=== PATIENT | female | born 2000 | race Caucasian/White ===

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

== ENCOUNTER 2019-04-05 17:05 | Emergency (ER) | payer MEDICAID ==
[~2019-04-05] VITALS: Ht 160 cm; Wt 59.1 kg
[2019-04-05 17:22] VITALS: BP 134/80; TEMP 99
[2019-04-05] MEDS ORDERED: PRENATAL TABLET PO (18:42)
[2019-04-05 19:12] LABS: ALBUMIN 4.6 gm/dL (3.5-5.0); BILIRUBIN,TOTAL 0.2 mg/dL (0.0-1.0); CREATININE, serum 0.5 (0.52-1.25); POTASSIUM 4.2 mmol/L (3.4-5.0); TOTAL PROTEIN 7.7 gm/dL (6.4-8.2)
[2019-04-05 19:29] LABS: COLLECTION METHOD CLEAN CATCH
[2019-04-05 19:53] LABS: BASO # 0.1 (0.0-0.2); BASO % 0.6 % (0.0-2.0); EOS # 0.1 (0.0-0.7); EOS % 0.9 % (0-4.0); GRAN # 5.5 (1.4-6.5); GRAN % 67.4 % (42.2-75.2); HEMOGLOBIN 12.1 g/dl (12.0-15.0); LYMPH % 24.6 % (20.0-51.0); MEAN CELL VOLUME 87 fl (80.0-95.0); MEAN CORPUSCULAR HEMOGLOBIN 30 pg (26.0-32.0); MEAN CORPUSCULAR HGB CONC 35 g/dl (33.0-37.0); MEAN PLATELET VOLUME 10.5 fl (7.4-10.4); MONO # 0.5 (0.1-0.6); MONO % 6.4 % (1.7-9.3); PLATELET COUNT 225 K/mm3 (130-400); RED BLOOD COUNT 4.02 M/mm3 (4.10-5.30); REDCELL DISTRIBUTION WIDTH-CV 11.8 % (11.5-14.5)
[2019-04-05 20:02] LABS: HEMATOCRIT 34.8 % (35.0-45.0)
[2019-04-05 20:04] LABS: MUCOUS Present /lpf; PH 5 (5-8); URINE APPEARANCE Clear; URINE BACTERIA Rare /hpf; URINE BILIRUBIN Negative (NEGATIVE); URINE BLOOD Negative (NEGATIVE); URINE COLOR Straw; URINE GLUCOSE Negative (NEGATIVE); URINE KETONE Negative (NEGATIVE); URINE LEUKOCYTE ESTERASE Negative (NEGATIVE); URINE NITRATE Negative (NEGATIVE); URINE PROTEIN(semi-quant) Negative (NEGATIVE); URINE RBC 0-2 /hpf; URINE UROBILINOGEN Negative (NEGATIVE)
[2019-04-05 20:30] VITALS: PULSE 67
== END 2019-04-05 20:38 | disposition home or self-care (01) ==
LOC: COL.ER 17:05
PROVIDERS: Physician Assistant
DX: O36.4XX0 Maternal care for intrauterine death, not applicable or unspecified (principal); Z3A.15 15 weeks gestation of pregnancy
CPT/HCPCS: J7030

== ENCOUNTER 2019-06-25 23:46 | Emergency (ER) | payer MEDICAID ==
[~2019-06-25] VITALS: Ht 162.6 cm; Wt 59.1 kg
[~2019-06-25 23:46] MED LIST changes: +PRENATAL TABLET PO
[2019-06-26] MEDS ORDERED: CEPHALEXIN500 M1 PO (00:21)
[2019-06-26 00:45] VITALS: BP 126/80; PULSE 68; TEMP 98.6
== END 2019-06-26 00:45 | disposition home or self-care (01) ==
LOC: COL.ER 23:46
DX: S61.210A Laceration without foreign body of right index finger without damage to nail, initial encounter (principal); Z23 Encounter for immunization; W26.8XXA Contact with other sharp object(s), not elsewhere classified, initial encounter; Y92.009 Unspecified place in unspecified non-institutional (private) residence as the place of occurrence of the external cause